=== PATIENT | female | born 1970 | race Caucasian/White ===

== ENCOUNTER 2019-10-22 11:01 | Emergency (ER) | payer OTHER, SELFPAY ==
[2019-10-22 11:05] VITALS: BP 126/74; PULSE 60; RESP 14; TEMP 36.7; O2SAT 97; BMI 24.0
[2019-10-22 11:36] LABS: Bacteria Urine None Seen
[2019-10-22 11:43] LABS: RBC Urine 1-5/HPF (0-5/HPF)
[2019-10-22 11:44] LABS: Culture Indicated Urine Cult Not Indicated; Squamous Epithelial Cell Urine 0-1 /HPF (0-5/HPF); WBC Urine 0-1/HPF (0-5/HPF)
[2019-10-22 11:58] VITALS: BP 121/69; PULSE 62; RESP 29; O2SAT 100
[2019-10-22 11:58] LABS: Add Manual Diff / Slide Review NO; Basophils Absolute Auto 100 /uL (0-100); Basophils Percent Auto 1.1 % (0-2); Eosinophils Absolute Auto 200 /uL (0-450); Eosinophils Percent Auto 2.9 % (2-4); Hematocrit 39.8 % (36-46); Hemoglobin 13.7 g/dL (12.0-16.0); Lymphocytes Absolute Auto 2400 /uL (1100-4500); Lymphocytes Percent Auto 34.8 % (25-40); Mean Corpuscular HGB Conc 34.5 % (30-36); Mean Corpuscular Hemoglobin 30.3 PG (26-34); Mean Corpuscular Volume 87.8 fL (80-100); Monocytes Absolute Auto 500 /uL (0-900); Monocytes Percent Auto 7.2 % (3-14); Neutrophils Absolute Auto 3700 /uL (1500-7000); Platelet Count 247 X10^3/uL (150-400); Red Blood Cell Count 4.53 X10^6/uL (4.0-5.2); Red Cell Distribution Width 12.8 % (11.6-14.8); White Blood Cell Count 6.8 X10^3/uL (4.5-11.0)
--- NOTE | 2019-10-22 12:05 | DI.RAD.S_ITS ---
PROCEDURE: XR ACUTE ABDOMEN SERIES INDICATIONS: abd pain TECHNIQUE: One view chest and two views of the abdomen were acquired. COMPARISON: None. FINDINGS: Surgical changes and devices: None. Chest: Lungs are clear. Heart size is normal. No pleural effusions. No pneumoperitoneum. Abdomen: Bowel gas pattern is normal. No suspicious calcifications. Visualized solid organ contours appear normal. IUD. Bones: No suspicious bony lesions. IMPRESSION: No evidence of acute abdominal process. No evidence acute pulmonary process. Dictated by: Larry Moncada M.D. on 10/22/2019 at 12:48 Approved by: Larry Moncada M.D. on 10/22/2019 at 12:49
--- NOTE | 2019-10-22 12:05 | DI.US.S_ITS ---
PROCEDURE: US ABDOMEN LIMITED INDICATIONS: RUQ PAIN TECHNIQUE: Real-time scanning was performed of the abdominal and retroperitoneal organs, with image documentation. COMPARISON: None. FINDINGS: Liver: Liver is normal in size and homogeneous in echotexture. Gallbladder: Gallbladder is normal in sonographic appearance without gallstones, gallbladder wall thickening, pericholecystic fluid, or abnormal sonographic Lao's. Biliary ducts: Intrahepatic bile ducts are non-dilated. Extrahepatic bile duct caliber measures 4 mm. Normal is 6-7 mm or less in diameter, or 10 mm or less post-cholecystectomy. Pancreas: Imaged portions of the pancreas are sonographically normal. Kidneys: Right kidney is normal in size and echotexture. Right kidney measures 8.6 with cortical thickness of 1.3 cm. No hydronephrosis or nephrolithiasis. No solid masses. Miscellaneous: No free abdominal fluid. IMPRESSION: Normal sonographic evaluation of the liver, gallbladder, and right kidney. No sonographic abnormalities identified to explain patient's right upper quadrant abdominal pain. Dictated by: Benoit Mireles M.D. on 10/22/2019 at 13:12 Approved by: Benoit Mireles M.D. on 10/22/2019 at 13:16
[2019-10-22 12:08] LABS: Prothrombin Time 12.1 SECONDS (10.1-12.7)
[2019-10-22 12:10] LABS: PTT Partial Thromboplastin Tim 32 SECONDS (26.4-36.2)
[2019-10-22 12:12] LABS: Alanine Aminotransferase 13 IU/L (<35); Albumin 4.3 g/dL (3.5-5.0); Albumin Globulin Ratio 1.2 (1.0-2.8); Alkaline Phosphatase 43 U/L (38-126); Aspartate Aminotransferase 25 IU/L (14-36); Bilirubin Total 0.5 mg/dL (0.2-1.3); Blood Urea Nitrogen 12 mg/dL (7-17); Calcium 9.8 mg/dL (8.4-10.2); Carbon Dioxide 28 mmol/L (22-32); Chloride 103 mmol/L (98-107); Estimated Glomerular Filt Rate > 60.0 mL/min (>60); Globulin 3.6 g/dL (1.7-4.1); Glucose 97 mg/dL (70-100); HEMOLYSIS < 15 (0-50); Lipase 186 U/L (23-300); Potassium 4.1 mmol/L (3.4-5.1); Sodium 139 mmol/L (137-145); Total Protein 7.9 g/dL (6.3-8.2)
[2019-10-22] MEDS: SODIUM CHLORIDE 0.9% 1,000 ML 1000 ML IV (12:15)
[2019-10-22] MEDS: MORPHINE 4 MG/ML INJ IV (12:15)
[2019-10-22] MEDS: METOCLOPRAMIDE 10 MG/2 ML INJ IV (12:16)
[2019-10-22 12:18] LABS: Amylase 125 U/L (30-110)
--- NOTE | 2019-10-22 12:20 | ED.ABDPAIN ---
HPI - Abdominal Pain <DOMINIQUE Tolbert - Last Filed: 10/22/19 15:11> General Chief Complaint: Abdominal Pain Stated Complaint: Rt side pain & nausea Time Seen by Provider: 10/22/19 11:52 Source: patient and family Mode of arrival: Ambulatory Limitations: no limitations History of Present Illness HPI narrative: The patient is a 49-year-old female nonsmoker with history of chronic abdominal pain who presents with a chief complaint of right upper quadrant pain. She states that has been going on and off for the past 30 days, though has been consistent over the past 4 days. She states that she has a long history of gallbladder ?attacks and that they started approximately 218 years ago. She complains of nausea, no vomiting. No diarrhea. Has not had a bowel movement in several days. But states the most recent 1 was normal. Denies any dysuria urgency or frequency. She does note that she has chronic hematuria that runs in her family. She has not taken anything at home to feel better. She states that the right upper quadrant pain radiates around to her right flank. She denies any fevers muscle aches or chills. Related Data Previous Rx's Medication Instructions Recorded metoclopramide HCl 10 mg PO Q6H PRN #14 tab 10/22/19 Allergies Allergy/AdvReac Type Severity Reaction Status Date / Time No Known Drug Allergies Allergy Verified 10/22/19 11:21 Review of Systems <DOMINIQUE Tolbert - Last Filed: 10/22/19 15:11> Review of Systems Narrative: GENERAL: Denies chills, fatigue, malaise, fever, sweats. HEENT: Denies sinus pain, ear pain, sore throat, difficulty swallowing, dizziness. RESPIRATORY: Denies dyspnea, cough, wheezing, hemoptysis, sputum. CARDIOVASCULAR: Denies chest pain, palpitations, orthopnea, edema, GASTROINTESTINAL: See HPI : Denies dysuria, frequency, incontinence, hematuria, urinary retention. MUSCULOSKELETAL: denies weakness, joint pain, or bony pain SKIN: Denies rash, skin lesions, or other NEUROLOGIC: Denies weakness, headache, numbness, change in speech, confusion, seizures, incoordination. PSYCHIATRIC: No concerning psychosocial issues. 12 point review of systems is negative except for those stated above Patient History <DOMINIQUE Tolbert - Last Filed: 10/22/19 15:11> Social History Smoking Status: Unknown if ever smoked Smoking Status: Unknown if ever smoked alcohol intake frequency: holidays/special occasions only Substance Use Type: does not use Exam <NHI Tolbert - Last Filed: 10/22/19 15:11> Narrative Exam Narrative: GENERAL: This is a well-nourished, well-developed patient, no acute distress HEAD: Atraumatic. Normocephalic. No temporal or scalp tenderness. EYES: Pupils equal round and reactive. Extraocular motions intact. No scleral icterus. No injection or drainage. ENT: Nose without bleeding, purulent drainage or septal hematoma. Throat without erythema, tonsillar hypertrophy or exudate. Uvula midline. Airway patent. NECK: Trachea midline. No JVD or lymphadenopathy. Supple, nontender, no meningeal signs. CARDIOVASCULAR: Regular rate and rhythm without murmurs, gallops, or rubs. RESPIRATORY: Clear to auscultation. Breath sounds equal bilaterally. No wheezes, rales, or rhonchi. GASTROINTESTINAL: Abdomen soft,, nondistended. No hepato-splenomegaly, or palpable masses. No guarding. Pain to palpation right upper quadrant. Active bowel sounds. EXTREMITIES: No clubbing, cyanosis, or edema. No joint tenderness, effusion, or edema noted. BACK: Nontender without deformity or crepitance. No flank tenderness. NEURO: AOx3. SKIN: No rash or erythema on visible skin Initial Vital Signs Initial Vital Signs: Vital Signs Temperature 98.1 F 10/22/19 11:05 Pulse Rate 60 10/22/19 11:05 Respiratory Rate 14 10/22/19 11:05 Blood Pressure 126/74 10/22/19 11:05 Pulse Oximetry 97 10/22/19 11:05 <Papa Escobar MD - Last Filed: 10/22/19 16:52> Initial Vital Signs Initial Vital Signs: Vital Signs Temperature 98.1 F 10/22/19 11:05 Pulse Rate 60 10/22/19 11:05 Respiratory Rate 14 10/22/19 11:05 Blood Pressure 126/74 10/22/19 11:05 Pulse Oximetry 97 10/22/19 11:05 Course <NHI Tolbert - Last Filed: 10/22/19 15:11> Course Course Narrative: At 06 15, I obtained records from [facility] as the patient presented to their emergency department last year for similar complaints. At that point she had a gallbladder ultrasound, and basic lab work with no acute findings. The chart references patient has chronic pain, the fact that she has had multiple ultrasounds, endoscope ease and HIDA scans without specific diagnosis. The patient had reported that they ?didn't do anything during that visit. Orders Ordered: ED Orders 10/22/19 11:10 Urine Microscopic Stat 10/22/19 11:43 EKG-12 Lead Stat 10/22/19 11:50 Complete Blood Count AUTO DIFF Stat Comprehensive Metabolic Panel Stat Lipase Stat Partial Thromboplastin Time Stat Prothrombin Time INR Stat 10/22/19 12:05 US abdomen limited Stat XR acute abdomen series Stat 10/22/19 12:10 Amylase Stat Discontinued Medications Sodium Chloride (Normal Saline 0.9%) 1,000 mls @ 1,000 mls/hr IV BOLUS ONE Stop: 10/22/19 13:04 Last Infusion: 10/22/19 16:34 Dose: 0 mls/hr Documented by: Admin: 10/22/19 12:15 Dose: 1,000 mls/hr Documented by: KAYLAN Metoclopramide HCl (Reglan) 10 mg IV NOW ONE Stop: 10/22/19 12:06 Last Admin: 10/22/19 12:16 Dose: 10 mg Documented by: KAYLAN Morphine Sulfate (Morphine) 4 mg IV NOW ONE Stop: 10/22/19 12:06 Last Admin: 10/22/19 12:15 Dose: 4 mg Documented by: KAYLAN Consultations Consultation #1: Consulted Controlled [facility] controlled substance database. The patient has had no narcotics dispensed in the past year. Time: 12:33 Vital Signs Vital signs: Vital Signs - 8 hr 10/22/19 11:05 10/22/19 11:58 10/22/19 14:48 Temperature 98.1 F Pulse Rate 60 62 62 Respiratory Rate 14 29 H 29 H Blood Pressure 126/74 121/69 Blood Pressure [Right Arm] 121/69 Pulse Oximetry 97 100 100 <Papa Escobar MD - Last Filed: 10/22/19 16:52> Orders Ordered: ED Orders 10/22/19 11:10 Urine Microscopic Stat 10/22/19 11:43 EKG-12 Lead Stat 10/22/19 11:50 Complete Blood Count AUTO DIFF Stat Comprehensive Metabolic Panel Stat Lipase Stat Partial Thromboplastin Time Stat Prothrombin Time INR Stat 10/22/19 12:05 US abdomen limited Stat XR acute abdomen series Stat 10/22/19 12:10 Amylase Stat Discontinued Medications Sodium Chloride (Normal Saline 0.9%) 1,000 mls @ 1,000 mls/hr IV BOLUS ONE Stop: 10/22/19 13:04 Last Infusion: 10/22/19 16:34 Dose: 0 mls/hr Documented by: Admin: 10/22/19 12:15 Dose: 1,000 mls/hr Documented by: KAYLAN Metoclopramide HCl (Reglan) 10 mg IV NOW ONE Stop: 10/22/19 12:06 Last Admin: 10/22/19 12:16 Dose: 10 mg Documented by: KAYLAN Morphine Sulfate (Morphine) 4 mg IV NOW ONE Stop: 10/22/19 12:06 Last Admin: 10/22/19 12:15 Dose: 4 mg Documented by: KAYLAN Vital Signs Vital signs: Vital Signs - 8 hr 10/22/19 11:05 10/22/19 11:58 10/22/19 14:48 Temperature 98.1 F Pulse Rate 60 62 62 Respiratory Rate 14 29 H 29 H Blood Pressure 126/74 121/69 Blood Pressure [Right Arm] 121/69 Pulse Oximetry 97 100 100 MDM - Abdominal Pain <KIARA Tolbert- - Last Filed: 10/22/19 15:11> Differential Diagnosis Differential diagnosis: Likely abdominal pain, constipation, pancreatitis and small bowel obstruction Medical Records Attestation: I reviewed the patient's medical records. Lab Data Attestation: I reviewed the patient's lab results. Result diagrams: 10/22/19 11:50 10/22/19 11:50 Labs: Lab Results 10/22/19 10/22/19 10/22/19 Range/Units 11:10 11:50 11:50 WBC 6.8 (4.5-11.0) X10^3/uL RBC 4.53 (4.0-5.2) X10^6/uL Hgb 13.7 (12.0-16.0) g/dL Hct 39.8 (36-46) % MCV 87.8 (80-100) fL MCH 30.3 (26-34) PG MCHC 34.5 (30-36) % RDW 12.8 (11.6-14.8) % Plt Count 247 (150-400) X10^3/uL Neut % (Auto) 54.0 (50-75) % Lymph % (Auto) 34.8 (25-40) % Foard % (Auto) 7.2 (3-14) % Eos % (Auto) 2.9 (2-4) % Baso % (Auto) 1.1 (0-2) % Neut # (Auto) 3700 (7557-1185) /uL Lymph # (Auto) 2400 (8394-9956) /uL Foard # (Auto) 500 (0-900) /uL Eos # (Auto) 200 (0-450) /uL Baso # (Auto) 100 (0-100) /uL PT 12.1 (10.1-12.7) SECONDS INR 1.0 (0.9-1.3) APTT 32 (26.4-36.2) SECONDS Sodium (137-145) mmol/L Potassium (3.4-5.1) mmol/L Chloride (98-107) mmol/L Carbon Dioxide (22-32) mmol/L BUN (7-17) mg/dL Creatinine (0.52-1.04) mg/dL Estimated GFR (>60) mL/min BUN/Creatinine Ratio (6-22) Glucose (70-100) mg/dL Calcium (8.4-10.2) mg/dL Total Bilirubin (0.2-1.3) mg/dL AST (14-36) IU/L ALT (<35) IU/L Alkaline Phosphatase (38-126) U/L Total Protein (6.3-8.2) g/dL Albumin (3.5-5.0) g/dL Globulin (1.7-4.1) g/dL Albumin/Globulin Ratio (1.0-2.8) Amylase (30-110) U/L Lipase (23-300) U/L Urine RBC 1-5/hpf (0-5/HPF) Urine WBC 0-1/hpf (0-5/HPF) Ur Squamous Epith Cells 0-1 /hpf (0-5/HPF) Urine Bacteria None seen (None) Ur Culture Indicated? Cult not indicated 10/22/19 10/22/19 Range/Units 11:50 12:10 WBC (4.5-11.0) X10^3/uL RBC (4.0-5.2) X10^6/uL Hgb (12.0-16.0) g/dL Hct (36-46) % MCV (80-100) fL MCH (26-34) PG MCHC (30-36) % RDW (11.6-14.8) % Plt Count (150-400) X10^3/uL Neut % (Auto) (50-75) % Lymph % (Auto) (25-40) % Foard % (Auto) (3-14) % Eos % (Auto) (2-4) % Baso % (Auto) (0-2) % Neut # (Auto) (3515-8588) /uL Lymph # (Auto) (9512-9235) /uL Foard # (Auto) (0-900) /uL Eos # (Auto) (0-450) /uL Baso # (Auto) (0-100) /uL PT (10.1-12.7) SECONDS INR (0.9-1.3) APTT (26.4-36.2) SECONDS Sodium 139 (137-145) mmol/L Potassium 4.1 (3.4-5.1) mmol/L Chloride 103 (98-107) mmol/L Carbon Dioxide 28 (22-32) mmol/L BUN 12 (7-17) mg/dL Creatinine 0.86 (0.52-1.04) mg/dL Estimated GFR > 60.0 (>60) mL/min BUN/Creatinine Ratio 14.0 (6-22) Glucose 97 (70-100) mg/dL Calcium 9.8 (8.4-10.2) mg/dL Total Bilirubin 0.5 (0.2-1.3) mg/dL AST 25 (14-36) IU/L ALT 13 (<35) IU/L Alkaline Phosphatase 43 (38-126) U/L Total Protein 7.9 (6.3-8.2) g/dL Albumin 4.3 (3.5-5.0) g/dL Globulin 3.6 (1.7-4.1) g/dL Albumin/Globulin Ratio 1.2 (1.0-2.8) Amylase 125 H (30-110) U/L Lipase 186 (23-300) U/L Urine RBC (0-5/HPF) Urine WBC (0-5/HPF) Ur Squamous Epith Cells (0-5/HPF) Urine Bacteria (None) Ur Culture Indicated? Point of care testing: Point of Care Testing Test Results Negative Urine Dip Bedside Urine Glucose Negative Bedside Urine Bilirubin - Negative Bedside Urine Ketone - Negative Urine Specific [place] 1.020 Bedside Urine Occult Blood ++ Bedside Urine pH 6.5 Bedside Urine Protein - Negative Bedside Urine Urobilinogen - Negative Bedside Urine Nitrite - Negative Bedside Urine Leukocytes - Negative Esterase Imaging Data US - abdomen: Radiologist's Impression: [address] [place] [id number] Ultrasound Report Signed Patient: Kayla Perera DMR#: [id number] : 1970Acct:[id number] Age/Sex: 49 / FDate of Service: 10/22/19 Loc: ED Accession Number: [id number] Procedure: US abdomen limited Ordering Provider: Janet Nava PROCEDURE: US ABDOMEN LIMITED INDICATIONS: RUQ PAIN TECHNIQUE: Real-time scanning was performed of the abdominal and retroperitoneal organs, with image documentation. COMPARISON: None. FINDINGS: Liver: Liver is normal in size and homogeneous in echotexture. Gallbladder: Gallbladder is normal in sonographic appearance without gallstones, gallbladder wall thickening, pericholecystic fluid, or abnormal sonographic Lao's. Biliary ducts: Intrahepatic bile ducts are non-dilated. Extrahepatic bile duct caliber measures 4 mm. Normal is 6-7 mm or less in diameter, or 10 mm or less post-cholecystectomy. Pancreas: Imaged portions of the pancreas are sonographically normal. Kidneys: Right kidney is normal in size and echotexture. Right kidney measures 8.6 with cortical thickness of 1.3 cm. No hydronephrosis or nephrolithiasis. No solid masses. Miscellaneous: No free abdominal fluid. IMPRESSION: Normal sonographic evaluation of the liver, gallbladder, and right kidney. No sonographic abnormalities identified to explain patient's right upper quadrant abdominal pain. Dictated by: Benoit Mireles M.D. on 10/22/2019 at 13:12 Approved by: Benoit Mireles M.D. on 10/22/2019 at 13:16 Abdominal x-ray: Radiologist's Impression: [address] [place] [id number] XRay Report Signed Patient: Kayla Perera [facility]#: [id number] : 1970Acct:[id number] Age/Sex: 49 / FDate of Service: 10/22/19 Loc: ED Accession Number: [id number] Procedure: XR acute abdomen series Ordering Provider: Janet Nava PROCEDURE: XR ACUTE ABDOMEN SERIES INDICATIONS: abd pain TECHNIQUE: One view chest and two views of the abdomen were acquired. COMPARISON: None. FINDINGS: Surgical changes and devices: None. Chest: Lungs are clear. Heart size is normal. No pleural effusions. No pneumoperitoneum. Abdomen: Bowel gas pattern is normal. No suspicious calcifications. Visualized solid organ contours appear normal. IUD. Bones: No suspicious bony lesions. IMPRESSION: No evidence of acute abdominal process. No evidence acute pulmonary process. Dictated by: Larry Moncada M.D. on 10/22/2019 at 12:48 Approved by: Larry Moncada M.D. on 10/22/2019 at 12:49 ECG Data Interpretation: Sinus bradycardia. Ventricular rate 57. P.r. interval 173. QRS 88. MDM Narrative Medical decision making narrative: The patient is a 49-year-old female who presents with a chief complaint of right upper quadrant pain, acute on chronic. She has normal labs, no leukocytosis. She has a acute acute abdomen x-ray series as well as a negative right upper quadrant ultrasound with no evidence of gallbladder etiology. She has had longstanding GI issues, ?back 20 years. I discussed that she may benefit from a referral to a edge polisher. The patient felt much improved after dose of pain medicine and recommend in the emergency department. She is able to tolerate p.o. fluids. I discussed at length coming back to the emergency department for any acute concerns, eating a low-fat diet, following up with primary care provider. Patient has no questions or concerns upon discharge and states understanding return precautions as well as follow-up care. <Papa Escobar MD - Last Filed: 10/22/19 16:52> Lab Data Labs: Lab Results 10/22/19 10/22/19 10/22/19 Range/Units 11:10 11:50 11:50 WBC 6.8 (4.5-11.0) X10^3/uL RBC 4.53 (4.0-5.2) X10^6/uL Hgb 13.7 (12.0-16.0) g/dL Hct 39.8 (36-46) % MCV 87.8 (80-100) fL MCH 30.3 (26-34) PG MCHC 34.5 (30-36) % RDW 12.8 (11.6-14.8) % Plt Count 247 (150-400) X10^3/uL Neut % (Auto) 54.0 (50-75) % Lymph % (Auto) 34.8 (25-40) % Foard % (Auto) 7.2 (3-14) % Eos % (Auto) 2.9 (2-4) % Baso % (Auto) 1.1 (0-2) % Neut # (Auto) 3700 (7508-1056) /uL Lymph # (Auto) 2400 (7814-6679) /uL Foard # (Auto) 500 (0-900) /uL Eos # (Auto) 200 (0-450) /uL Baso # (Auto) 100 (0-100) /uL PT 12.1 (10.1-12.7) SECONDS INR 1.0 (0.9-1.3) APTT 32 (26.4-36.2) SECONDS Sodium (137-145) mmol/L Potassium (3.4-5.1) mmol/L Chloride (98-107) mmol/L Carbon Dioxide (22-32) mmol/L BUN (7-17) mg/dL Creatinine (0.52-1.04) mg/dL Estimated GFR (>60) mL/min BUN/Creatinine Ratio (6-22) Glucose (70-100) mg/dL Calcium (8.4-10.2) mg/dL Total Bilirubin (0.2-1.3) mg/dL AST (14-36) IU/L ALT (<35) IU/L Alkaline Phosphatase (38-126) U/L Total Protein (6.3-8.2) g/dL Albumin (3.5-5.0) g/dL Globulin (1.7-4.1) g/dL Albumin/Globulin Ratio (1.0-2.8) Amylase (30-110) U/L Lipase (23-300) U/L Urine RBC 1-5/hpf (0-5/HPF) Urine WBC 0-1/hpf (0-5/HPF) Ur Squamous Epith Cells 0-1 /hpf (0-5/HPF) Urine Bacteria None seen (None) Ur Culture Indicated? Cult not indicated 10/22/19 10/22/19 Range/Units 11:50 12:10 WBC (4.5-11.0) X10^3/uL RBC (4.0-5.2) X10^6/uL Hgb (12.0-16.0) g/dL Hct (36-46) % MCV (80-100) fL MCH (26-34) PG MCHC (30-36) % RDW (11.6-14.8) % Plt Count (150-400) X10^3/uL Neut % (Auto) (50-75) % Lymph % (Auto) (25-40) % Foard % (Auto) (3-14) % Eos % (Auto) (2-4) % Baso % (Auto) (0-2) % Neut # (Auto) (2798-7537) /uL Lymph # (Auto) (0764-8452) /uL Foard # (Auto) (0-900) /uL Eos # (Auto) (0-450) /uL Baso # (Auto) (0-100) /uL PT (10.1-12.7) SECONDS INR (0.9-1.3) APTT (26.4-36.2) SECONDS Sodium 139 (137-145) mmol/L Potassium 4.1 (3.4-5.1) mmol/L Chloride 103 (98-107) mmol/L Carbon Dioxide 28 (22-32) mmol/L BUN 12 (7-17) mg/dL Creatinine 0.86 (0.52-1.04) mg/dL Estimated GFR > 60.0 (>60) mL/min BUN/Creatinine Ratio 14.0 (6-22) Glucose 97 (70-100) mg/dL Calcium 9.8 (8.4-10.2) mg/dL Total Bilirubin 0.5 (0.2-1.3) mg/dL AST 25 (14-36) IU/L ALT 13 (<35) IU/L Alkaline Phosphatase 43 (38-126) U/L Total Protein 7.9 (6.3-8.2) g/dL Albumin 4.3 (3.5-5.0) g/dL Globulin 3.6 (1.7-4.1) g/dL Albumin/Globulin Ratio 1.2 (1.0-2.8) Amylase 125 H (30-110) U/L Lipase 186 (23-300) U/L Urine RBC (0-5/HPF) Urine WBC (0-5/HPF) Ur Squamous Epith Cells (0-5/HPF) Urine Bacteria (None) Ur Culture Indicated? Point of care testing: Point of Care Testing Test Results Negative Urine Dip Bedside Urine Glucose Negative Bedside Urine Bilirubin - Negative Bedside Urine Ketone - Negative Urine Specific [place] 1.020 Bedside Urine Occult Blood ++ Bedside Urine pH 6.5 Bedside Urine Protein - Negative Bedside Urine Urobilinogen - Negative Bedside Urine Nitrite - Negative Bedside Urine Leukocytes - Negative Esterase Discharge Plan Departure Patient Disposition: Home Clinical Impression: Biliary colic Abdominal pain Qualifiers: Abdominal location: right upper quadrant Qualified Code(s): R10.11 - Right upper quadrant pain Discharge Date/Time: 10/22/19 14:50 Instructions: DI for Abdominal Pain-Adult, DI for Biliary Colic Activity Restrictions/Additional Instructions: Thank you for trusting us with your care today. As I discussed, your lab work and imaging have no acute findings. I believe that you are having biliary colic. I have included discharge instructions regarding this with her paperwork today. Please follow-up with primary care provider. I believe that you would benefit from a GI referral given your complicated history. Please come back to the emergency department for any acute concerns such as inability keep down fluids, abdominal pain with fever etcetera I sent a prescription of metoclopramide or Reglan to [facility] [place] in [place] Prescriptions: New metoclopramide HCl 10 mg tablet 10 mg PO Q6H PRN (Reason: nausea and vomiting) Qty: 14 RF: 0 Referrals: [facility] [Provider Group] <Papa Escobar MD - Last Filed: 10/22/19 16:52> Cosign ED Attending Cosignature Attestation: I was immediately available in the department for consultation. This documentation has been reviewed and I agree with assessment and plan. Supervised by Papa Escobar MD
--- NOTE | 2019-10-22 13:27 | PC.NURSE ---
Patient in room with . Her IV was kinked and not flowing properly. I put the fluids on a pump to keep the line open.
[2019-10-22 14:48] VITALS: BP 121/69; PULSE 62; RESP 29; O2SAT 100
== END 2019-10-22 14:50 | disposition home or self-care (01) ==
PROVIDERS: Emergency Medicine; Emergency Provider Nurse Practitioner Family
DX: K80.50 Calculus of bile duct without cholangitis or cholecystitis without obstruction (principal); R10.11 Right upper quadrant pain; R11.0 Nausea
CPT/HCPCS: 36415; 74022; 76705; 80053; 81003; 81015; 81025; 82150; 83690; 85025; 85610; 85730; 93005; 93010; 96361; 96374; 96375; 99284; J2270; J2765

== ENCOUNTER → 2019-11-22 14:44 | Outpatient (CLI) | payer OTHER, SELFPAY ==
[2019-11-23 08:30] LABS: COVID19 Sendout Not Detected (Not Detect)
== END ==
PROVIDERS: Visit Provider Physician Assistant
DX: Z11.59 Encounter for screening for other viral diseases (principal)
CPT/HCPCS: 87635

== ENCOUNTER 2019-11-25 13:45 | Day surgery (SDC) | payer OTHER, SELFPAY ==
[2019-11-19 11:22] VITALS: BMI 24.3
--- NOTE | 2019-11-21 14:22 | SUR.PREOP ---
Per pt covid test is schd for Sat 11/24 here at [facility] clinic
[2019-11-25] VITALS (13 sets, daily range): BP systolic 114–155; BP diastolic 69–87; PULSE 59–98; RESP 10–18; TEMP 36.8–37.1; O2SAT 96–100; BMI 24.3
--- NOTE | 2019-11-25 | PATH_ITS ---
[facility] Accession Number: [id number] . 01 Material submitted: . gallbladder - GALLBLADDER AND CONTENTS . 02 Diagnosis: Gallbladder, Cholecystectomy: Mild chronic cholecystitis and cholesterolosis. . [facility] 11/27/2019 1145 Local . 02 Electronically signed: . Anamaria Meehan MD, Pathologist NPI- [id number] . 01 Gross description: . GALLBLADDER AND CONTENTS: Received in formalin is an unopened gallbladder 6.2 cm in length and 2.4 cm in maximum fundic diameter. The non-hepatic serosa is smooth and shiny. The lumen contains green bile and no stones. The mucosa is velvety. The wall is 0.1 cm thick. [employer] Supervisor sections are submitted in 2 cassettes. /[facility] 11/27/2019 1145 Local . 02 Pathologist provided ICD-10: K81.1, K82.8 . 02 CPT . 356966 Performed at: 01 [facility] [address] [facility], [place], [place] [id number] MD Chris Carter MD Phone: [phone] Performed at: 02 [facility] [place] [address] [place], [place] [id number] MD Mirna Horton MD Phone: [phone]
[2019-11-25] MEDS: LACTATED RINGERS 1,000 ML 100 ML IV ×2 (14:29→18:15)
--- NOTE | 2019-11-25 15:00 | PM.PREOP ---
Pre-operative Note COVID-19 COVID-19 status: Negative Result date/Date tested (Pos, Neg/Pending): 11/22/19 Interval Note History & Physical reviewed/Exam performed by Physician: Yes Changes to H&P: No
[2019-11-25] MEDS: CEFAZOLIN 2 GM/100 ML FROZ.PIGGY IV (16:40)
--- NOTE | 2019-11-25 17:03 | SUR.OPER ---
Supine on padded OR bed, head on pillow, arms secured on padded arm boards at <90 degrees abduction, legs uncrossed, footboard, safety belt at thigh, tape over blanket over lower legs.
[2019-11-25] MEDS: BUPIVACAINE 0.25% (PF) VIAL 30 ML INJ (17:10)
[2019-11-25] MEDS: ACETAMINOPHEN IV 1,000 MG/100 ML VIAL 400 MG IV (17:20)
--- NOTE | 2019-11-25 17:57 | PM.OP.1 ---
Operative Date/Time/Diagnoses Date of procedure: 11/25/19 Time of procedure: 17:57 Pre-op diagnosis: biliary dykinesia Post-op diagnosis: same Procedure & Clinicians Procedure: laparoscopic cholecystectomy Same procedure as scheduled: Yes Indications: 49F with biliary dyskinesia Surgeon: Kian Regalado Click Yes if Unassisted: Yes Anesthesia Type: General Operative Notes Findings: chronic cholecystitis Specimen(s): other (gallbladder) Estimated Blood Loss (mL): 10 Procedure in detail: The patient was brought to the operating room placed supine on the table. Bilateral lower extremity compression devices were applied. General anesthesia was induced and they were intubated with an endotracheal tube. They received 2g of Ancef prior to skin incision. A time-out was performed to ensure the correct patient procedure necessary equipment within the operating room. They were then prepped and draped in the usual sterile fashion. Infraumbilical incision was made the umbilical stalk was grasped and elevated and the fascia was sharply incised. The abdomen was entered atraumatically. A 10 mm trocar was then placed into the abdomen. Pneumoperitoneum was established. The laparoscopic camera was inserted into the abdomen inspection was made that demonstrated no evidence of injury upon entry. We then placed our working ports the 1st 11 mm port high in the epigastrium and then two 5mm in the right upper quadrant. The gallbladder was grasped and retracted over the liver and grasped laterally by the fundus. There was evidence of chronic cholecystitis demonstrated by significant fat stranding and adhesions to the gallbladder as well as adhesions over the top of the liver. The triangle of Calot was exposed. The triangle of calot was then meticulosly skeletonized using hook electrocautery and demonstrated the cystic duct clearly entering the gallbladder the cystic artery and the liver and in the background. With the critical view of safety established the cystic duct was clipped twice proximally and once distally and then sharply divided and the cystic artery was taken in the same fashion. Next the gallbladder was removed from the liver bed using electro cautery. The liver bed was then inspected for hemostasis and this was achieved. The abdomen was irrigated with sterile saline and inspection was made that showed the clips in good position. The specimen was removed using Endo-Catch. The abdomen was desufflated. The the fascia of the umbilicus was closed with 0 Vicryl in a [id number] fashion. Skin incisions were irrigated and closed with 4-0 Monocryl. The wounds were sealed with Dermabond. Patient emerged from general anesthesia was extubated and transferred to the postoperative care unit missed stable condition. The sponge and instrument count at the end of the operation was correct. Complications: none Post-operative Condition: stable Disposition: same day surgery
[2019-11-25] MEDS: fentaNYL 100 MCG/2 ML INJ IV (18:22)
[2019-11-25] MEDS: METOCLOPRAMIDE 10 MG/2 ML INJ IV (18:32)
[2019-11-25] MEDS: OXYCODONE IR 5 MG TABLET PO (18:46)
--- NOTE | 2019-11-25 18:48 | SUR.PHASEI ---
Crackers and gingerale provided to patient..
--- NOTE | 2019-11-25 19:36 | SUR.PHASEII ---
Discharged patient home with in stable condition. All belongings returned to patient. Escorted patient to main entrance for discharge.
== END 2019-11-25 19:34 | disposition home or self-care (01) ==
PROVIDERS: Referring Provider Surgery; Visit Provider Surgery
PROC: 0FT44ZZ Resection of Gallbladder, Percutaneous Endoscopic Approach (ICD-10-PCS; CPT 47562; principal; 2019-11-25 15:15)
DX: K81.1 Chronic cholecystitis (principal); K82.8 Other specified diseases of gallbladder
CPT/HCPCS: 47562; J0131; J0690; J1100; J1885; J2250; J2405; J2704; J2765; J3010